=== PATIENT | female | born 1965 | race Caucasian/White ===

== ENCOUNTER → 2018-09-19 | Day surgery (SDC) | payer MEDICARE, BC ==
--- NOTE | 2018-09-19 10:25 | MMO ---
SPECIMEN RADIOGRAPHS RIGHT BREAST: CLINICAL HISTORY: Stereotactic biopsy of calcifications of right breast performed with radiographic imaging of specimen s to confirm calcifications from upper inner quadrant of right breast. FINDINGS: Specimen radiographs are performed which reveal faint microcalcifications within the specimens. IMPRESSION: Calcifications are present within the radiographed specimens. POS: [facility]IS[facility]
--- NOTE | 2018-09-19 10:27 | MMO ---
DIAGNOSTIC RIGHT MAMMOGRAM: CLINICAL HISTORY: Status post stereotactic biopsy of right breast, calcifications from upper inner quadrant of right br east, and clip placement. INDICATION: Indeterminate segmentally distributed calcifications of the upper inner right breast. FINDINGS: There is heterogeneously dense breast parenchyma. At the site of segmentally distributed calcificati ons of interest within the upper inner right breast, there is post-biopsy change with a deployed clip and interval decrease in number of calcifications of interest. IMPRESSION: Status post stereotactic biopsy and clip placement of the right breast with a clip deployed at the si te of calcifications of interest. POS: [facility]ISAL
--- NOTE | 2018-09-19 10:28 | MMO ---
STEREOTACTIC BIOPSY OF RIGHT BREAST: BIOPSY MARKING CLIP DEPLOYMENT WITHIN RIGHT BREAST: INDICATIONS: Abnormal calcifications of the upper inner right breast. PROCEDURE: Informed consent was obtained, and the patient was escorted to the procedural suite. The patient was placed in the prone position, and the right breast was then placed into compression. The segmentall y distributed calcifications of interest within the right breast were localized and then targeted wit h stereotactic coordinates. The right breast was prepped and draped in a standard sterile fashion, a nd topical anesthesia was achieved with buffered 1% Lidocaine. A small skin incision was made, throu gh which a 10 gauge vacuum-assist biopsy needle was advanced and then deployed within the site of vicente cifications, confirmed with imaging. Subsequently, six core specimens were acquired. Given the segm ental distribution of the abnormality, one additional sampling of six core specimens was acquired. T hese specimens were radiographed and did reveal microcalcifications within the radiographed specimens . The needle was removed. The biopsy marking clip was advanced and then deployed within the site of the biopsy. Stereotactic imaging did reveal deployment of the clip at the site of biopsy. No procedural complications were present. IMPRESSION: Technically successful stereotactic biopsy of right breast. Pathology results are pending. The patient will be notified when the results are received. POS: [facility]
== END ==
LOC: MAMMO 07:25
PROVIDERS: ATTEND Obstetrics & Gynecology
PROC: 0HBT3ZX Excision of Right Breast, Percutaneous Approach, Diagnostic (ICD-10-PCS; principal; 2018-09-19)
DX: R92.1 Mammographic calcification found on diagnostic imaging of breast (principal)
CPT/HCPCS: 19081; 76098; 88305